=== PATIENT | male | born 1980 | race Caucasian/White ===

== ENCOUNTER 2017-12-05 16:29 | Emergency (ER) | payer OTHER ==
[2017-12-05 16:35] VITALS: TEMP 98.6
[2017-12-05] MEDS ORDERED: Tdap Vaccine 0.5 ml Vial (10-64 yrs) IM ONE ×2 (17:31→18:48)
--- NOTE | 2017-12-05 17:44 | ED PDOC ---
HPI: Trauma/Fall - HPI Time Seen by Provider: 12/05/17 16:50 Chief Complaint (Nursing): Trauma Chief Complaint (Provider): Trauma History Per: Patient, Other (Witnesses (Co-workers)) History/Exam Limitations: no limitations Onset/Duration Of Symptoms: Mins Injury Occurred (Timing): Just Before Arrival Additional Complaint(s): 37 y/o male presents to the ED for a head injury evaluation, onset prior to arrival. Patient was working and moving objects when he hit the top of his head on a metal rack. As per co-worker, patient then walked about 20 feet and lost consciousness. Co-worker also reports blood was coming from his head and patient felt very hot. Witnesses say patient was unconscious for several minutes. Patient reports of feeling dizzy before losing consciousness. Patient is now complaining of pain to the top of his head. Denies nausea, vomiting, visual changes, paresthesia and weakness. PMD: No Provider Past Medical History Reviewed: Historical Data, Nursing Documentation, Vital Signs Vital Signs: Last Vital Signs Temp 98.6 F 12/05/17 16:31 Pulse 102 H 12/05/17 16:31 Resp 18 12/05/17 16:31 BP 144/99 H 12/05/17 16:31 Pulse Ox 99 12/05/17 16:31 - Medical History PMH: No Chronic Diseases - Surgical History Surgical History: No Surg Hx - Family History Family History: States: Unknown Family Hx - Social History Current smoker - smoking cessation education provided: No Alcohol: None Drugs: Denies - Home Medications Home Medications: Ambulatory Orders Medication Instructions Recorded Acetaminophen with Codeine 1 tab PO Q6H PRN #10 tab 12/05/17 [Tylenol with Codeine No. 3 300 mg-30 mg] - Allergies Allergies/Adverse Reactions: Allergies Allergy/AdvReac Type Severity Reaction Status Date / Time No Known Allergies Allergy Verified 12/05/17 16:31 Review of Systems ROS Statement: Except As Marked, All Systems Reviewed And Found Negative Constitutional: Negative for: Weakness Eyes: Negative for: Vision Change Gastrointestinal: Negative for: Nausea, Vomiting Musculoskeletal: Positive for: Other (Head pain s/p Head Injury ) Neurological: Positive for: Dizziness, Other (Loss of consciousness) Physical Exam - Reviewed Nursing Documentation Reviewed: Yes Vital Signs Reviewed: Yes - Physical Exam Appears: Positive for: No Acute Distress Head Exam: Positive for: NORMAL INSPECTION (Abrasion to the superior scalp) Skin: Positive for: Normal Color, Warm, Dry Eye Exam: Positive for: Normal appearance, EOMI, PERRL Neck: Negative for: Normal (Tenderness to the Cervical Spine) Cardiovascular/Chest: Positive for: Regular Rate, Rhythm. Negative for: Murmur Respiratory: Positive for: Normal Breath Sounds. Negative for: Respiratory Distress Gastrointestinal/Abdominal: Positive for: Normal Exam, Soft. Negative for: Tenderness Back: Positive for: Normal Inspection. Negative for: L CVA Tenderness, R CVA Tenderness, Vertebral Tenderness Extremity: Positive for: Normal ROM. Negative for: Deformity Neurologic/Psych: Positive for: Alert, Oriented. Negative for: Motor/Sensory Deficits - ECG O2 Sat by Pulse Oximetry: 99 (RA) Pulse Ox Interpretation: Normal Medical Decision Making Medical Decision Making: Time: 1731 Impression: Head Injury, Syncope Plan: -- CT Cervical Spine w/o Contrast -- CT Head w/o contrast -- Adacel (10-64 yrs) 0.5 ml IM Accession No. : [id number] Patient Name / ID : IRWIN MONTERO / [id number] Exam Date : 12/05/2017 17:43:07 ( Approved ) Study Comment : Sex / Age : M / 37Y Creator : Pepe Mayorga MD Dictator : [employer] Manager : Regional Transportation Manager : Pepe Mayorga MD Approver2 : Report Date : 12/05/2017 18:18:03 My Comment : Date of service: 12/05/2017 PROCEDURE: CT HEAD WITHOUT CONTRAST. HISTORY: Head injury COMPARISON: None available. TECHNIQUE: Axial computed tomography images were obtained through the head/brain without intravenous contrast. Radiation dose: Total exam DLP = 825.37 mGy-cm. This CT exam was performed using one or more of the following dose reduction techniques: Automated exposure control, adjustment of the mA and/or kV according to patient size, and/or use of iterative reconstruction technique. FINDINGS: HEMORRHAGE: No intracranial hemorrhage. BRAIN: No mass effect or edema. No atrophy or chronic microvascular ischemic changes. VENTRICLES: Unremarkable. No hydrocephalus. CALVARIUM: Unremarkable. PARANASAL SINUSES: Minimal mucosal thickening seen within both maxillary sinuses as well as a few ethmoid air cells. . MASTOID AIR CELLS: Unremarkable as visualized. No inflammatory changes. OTHER FINDINGS: None. IMPRESSION: No acute intracranial hemorrhage. Scribe Attestation: Documented by Dominique Hawkins acting as a scribe for Dr. Yissel Mercado MD. Provider Scribe Attestation: All medical record entries made by the Scribe were at my direction and personally dictated by me. I have reviewed the chart and agree that the record accurately reflects my personal performance of the history, physical exam, medical decision making, and the department course for this patient. I have also personally directed, reviewed, and agree with the discharge instructions and disposition. Disposition - Clinical Impression Clinical Impression: Head injury, acute, with loss of consciousness - Patient ED Disposition Is Patient to be Admitted: No - Disposition Disposition: Routine/Home Disposition Time: 19:18 Condition: STABLE Additional Instructions: FOLLOW-UP WITH WORKMAN'S COMP WITHIN 2 DAYS FOR REEVALUATION. Prescriptions: Acetaminophen with Codeine [Tylenol with Codeine No. 3 300 mg-30 mg] 1 tab PO Q6H PRN #10 tab PRN Reason: Pain, Severe (8-10) Instructions: Concussion in Adults Forms: [facility] ([facility])
--- NOTE | 2017-12-05 18:19 | CT ---
Date of service: 12/05/2017 PROCEDURE: CT HEAD WITHOUT CONTRAST. HISTORY: Head injury COMPARISON: None available. TECHNIQUE: Axial computed tomography images were obtained through the head/brain without intravenous contrast. Radiation dose: Total exam DLP = 825.37 mGy-cm. This CT exam was performed using one or more of the following dose reduction techniques: Automated exposure control, adjustment of the mA and/or kV according to patient size, and/or use of iterative reconstruction technique. FINDINGS: HEMORRHAGE: No intracranial hemorrhage. BRAIN: No mass effect or edema. No atrophy or chronic microvascular ischemic changes. VENTRICLES: Unremarkable. No hydrocephalus. CALVARIUM: Unremarkable. PARANASAL SINUSES: Minimal mucosal thickening seen within both maxillary sinuses as well as a few ethmoid air cells. . MASTOID AIR CELLS: Unremarkable as visualized. No inflammatory changes. OTHER FINDINGS: None. IMPRESSION: No acute intracranial hemorrhage.
--- NOTE | 2017-12-05 18:34 | CT ---
Date of service: 12/05/2017 PROCEDURE: CT Cervical Spine without contrast HISTORY: Head injury COMPARISON: None available. TECHNIQUE: Axial computed tomography images were obtained of the cervical spine without the use of intravenous contrast. Coronal and sagittal reformatted images were created and reviewed. Radiation dose: Total exam DLP = 342.99 mGy-cm. This CT exam was performed using one or more of the following dose reduction techniques: Automated exposure control, adjustment of the mA and/or kV according to patient size, and/or use of iterative reconstruction technique. FINDINGS: VERTEBRAE: No fracture. Normal alignment. No destructive bony lesion. DISCS/SPINAL CANAL/NEURAL FORAMINA: Minor central and bilateral disc bulging changes seen at the C3-C4 level which does appear to be at compress the ventral surface of the spinal cord. Central canal is marginal to minimally narrowed at this level. Exit foramina adequate. Small central and bilateral disc bulge also seen at the C5-C6 level. PARASPINAL SOFT TISSUES: Paraspinal soft tissues unremarkable OTHER FINDINGS: Small amount of air is present within the upper esophagus on the left side. . Two additional small bubbles of air are seen just to the right of the midline which may also be within the esophagus is well. Clinical correlation recommended. Minor biapical pleural thickening and scarring adjacent parenchymal scarring. IMPRESSION: No acute fractures. Small amount of air is felt be present within the lumen of the upper esophagus as above.
[2017-12-05 19:29] VITALS: BP 143/85; PULSE 88; RESP 16
[2017-12-06 16:01] VITALS: O2SAT 99
== END 2017-12-05 19:29 | disposition home or self-care (01) ==
LOC: H.ER 16:29
DX: S06.9X9A Unspecified intracranial injury with loss of consciousness of unspecified duration, initial encounter (principal); W22.8XXA Striking against or struck by other objects, initial encounter; Y92.89 Other specified places as the place of occurrence of the external cause; Y99.0 Civilian activity done for income or pay; Z23 Encounter for immunization